=== PATIENT | female | born 1965 | race Caucasian/White ===

== ENCOUNTER 2020-03-23 14:48 | Emergency (ER) | payer OTHER ==
[2020-03-23] MEDS ORDERED: Ketorolac 30 MG/ML SDV IM ONE (15:06)
--- NOTE | 2020-03-23 16:28 | EDM.PDOC ---
ED HPI GENERAL MEDICAL PROBLEM - General Chief Complaint: Trauma Stated Complaint: [facility] Time Seen by Provider: 03/23/20 14:58 Source of Information: Reports: Patient, RN Notes Reviewed - History of Present Illness INITIAL COMMENTS - FREE TEXT/NARRATIVE: got bucked off a horse about 5 hrs ago. Continued pain L lateral chest. Pain is worse with deep breathing, movement. No other apparent pain or injury.No LOC, no neck or back pain. Left Thoracic Pain Score (Numeric/FACES): 8 - Related Data Allergies Allergy/AdvReac Type Severity Reaction Status Date / Time No Known Allergies Allergy Verified 03/23/20 14:59 Past Medical History - Past Health History Medical/Surgical History: Denies Medical/Surgical History Social & Family History - Tobacco Use Smoking Status *Q: Current Some Day Smoker Years of Tobacco use: 5 Packs/Tins Daily: 0.1 - Caffeine Use Caffeine Use: Reports: Coffee - Recreational Drug Use Recreational Drug Use: No Review of Systems - Review of Systems Review Of Systems: See Below Constitutional: Denies: Chills, Fever Eyes: Reports: No Symptoms Ears: Reports: No Symptoms Nose: Reports: No Symptoms Mouth/Throat: Reports: No Symptoms Respiratory: Reports: Pleuritic Chest Pain. Denies: Shortness of Breath, Cough, Hemoptysis Cardiovascular: Reports: Chest Pain GI/Abdominal: Denies: Abdominal Pain, Nausea, Vomiting Musculoskeletal: Denies: Neck Pain, Shoulder Pain, Arm Pain Neurological: Denies: Dizziness, Headache, Numbness, Tingling, Trouble Speaking, Difficulty Walking, Weakness ED EXAM, GENERAL - Physical Exam Exam: See Below General Appearance: Alert, Moderate Distress Eye Exam: Bilateral Eye: PERRL Ears: Normal External Exam Nose: Normal Inspection Head: Atraumatic. No: Facial Swelling Neck: Supple, Non-Tender Respiratory/Chest: Lungs Clear, Normal Breath Sounds. No: Respiratory Distress, Rhonchi, Wheezing Cardiovascular: Regular Rate, Rhythm GI/Abdominal: Soft, Non-Tender Extremities: Normal Inspection, Normal Range of Motion Neurological: Alert, Oriented Skin Exam: Warm, Dry, Normal Color Course - Vital Signs Last Recorded V/S: Last Vital Signs Temp 98.8 F 03/23/20 16:50 Pulse 65 03/23/20 16:50 Resp 16 03/23/20 16:50 BP 95/67 03/23/20 16:50 Pulse Ox 100 03/23/20 16:50 - Orders/Labs/Meds Meds: Medications Discontinued Medications Generic Name Dose Route Start Last Admin Trade Name Lashonda PRN Reason Stop Dose Admin Ketorolac Tromethamine 30 mg 03/23/20 15:06 03/23/20 15:21 Toradol IM 03/23/20 15:07 30 mg ONETIME ONE Administration - Re-Assessments/Exams Free Text/Narrative Re-Assessment/Exam: 03/28/20 08:33 X rays show multiple L lower rib fractures. Pt doing relatively well with pain, breathing, discharge instr. as documented. Departure - Departure Time of Disposition: 16:22 Disposition: Home, Self-Care 01 Condition: Fair Clinical Impression: Fall Qualifiers: Encounter type: initial encounter Qualified Code(s): W19.XXXA - Unspecified fall, initial encounter Ribs, multiple fractures Qualifiers: Encounter type: initial encounter Fracture type: closed Laterality: left Qualified Code(s): S22.42XA - Multiple fractures of ribs, left side, initial encounter for closed fracture - Discharge Information Instructions: Rib Fracture, [id number] Referrals: PCP,Not In Area [Primary Care Provider] - Forms: ED Department Discharge Additional Instructions: no lifting more than 10 lbs, alternate ice and heat as needed. Tylenol q 4 to 6 hr as needed or hydrocodone q 4 to 6 hr if needed for severe pain. A good option is to take 1/2 tablet hydrocodone along with 500 mg tylenol q 4 to 6 hr as needed. See your regular medical provider when you get back home for medical follow up. Return to ED as needed if symptoms worsening in any way. Sepsis Event Note (ED) - Evaluation Sepsis Screening Result: No Definite Risk
--- NOTE | 2020-03-24 11:15 | CR ---
Chest and left ribs: Frontal view of the chest was obtained as well as 2 views of the left ribs. Fractures are seen within the approximate posterior lateral 6th, 7th and 8th left ribs. Minimal displacement is noted. No additional rib fracture is definitely appreciated. Heart size is normal. Tortuous thoracic aorta is noted. No pneumothorax is seen. No subcutaneous air is seen. Impression: 1. At least 3 left-sided rib fractures as described above. 2. Nothing acute is otherwise seen on accompanying chest x-ray. Diagnostic code #3 This report was dictated in MDT
== END 2020-03-23 16:50 | disposition home or self-care (01) ==
LOC: JD.ED 14:48
DX: S22.42XA Multiple fractures of ribs, left side, initial encounter for closed fracture (principal); F17.210 Nicotine dependence, cigarettes, uncomplicated; W55.12XA Struck by horse, initial encounter
CPT/HCPCS: 71101; 96372; 99283; J1885